=== PATIENT | female | born 1995 | race Two or more races ===

== ENCOUNTER 2020-10-17 17:55 | Emergency (ER) | payer OTHER ==
[~2020-10-17] VITALS: Ht 149.9 cm; Wt 71.6 kg
--- NOTE | 2020-10-17 18:23 | NUR ---
first contact with pt. pt is 18 weeks . lmp end of may. pt c/o vaginal bleeding x1 episode today. pt denies any abd pain/n/v/dzy/urinary symptoms. pt saw ob yesterday and everything was fine yesterday per pt. a0. pt's aox4. resps even and unlabored. bp/spo2 monitors in place. call light within reach. pa at bedside for evaluation at this time.
--- NOTE | 2020-10-17 18:37 | NUR ---
pt amb to br with steady gait. urine cup given.
--- NOTE | 2020-10-17 18:47 | NUR ---
pt provided small amount of urine. this rn walked to lab for ua.
[2020-10-17 18:51] LABS: MICROSCOPIC NOT IND
--- NOTE | 2020-10-17 18:55 | NUR ---
report given to jhoana garcia.
--- NOTE | 2020-10-17 18:56 | NUR ---
Report from Tiffanie MANE. Pt back from [place], awaiting results.
[2020-10-17 19:02] VITALS: BP 110/54
--- NOTE | 2020-10-17 19:09 | NUR ---
pt states she and usband had intercourse last night.
--- NOTE | 2020-10-17 19:34 | NUR ---
[facility] results are back, chart up for ERP.
== END 2020-10-17 20:01 | disposition home or self-care (01) ==
LOC: ED 19:30
DX: O20.0 Threatened abortion (principal); Z3A.18 18 weeks gestation of pregnancy
CPT/HCPCS: 36415; 76815; 81003; 86901; 99284

== ENCOUNTER 2021-03-15 07:55 | Inpatient (IN) | payer OTHER ==
[~2021-03-15] VITALS: Ht 149.9 cm; Wt 78.6 kg
[2021-03-15] MEDS ORDERED: LACTATED RINGERS 1,000 ML IVBOLUS ONE (10:30)
[2021-03-15] MEDS ORDERED: SODIUM CITRATE/CITRIC ACID 30 ML UDC PO ONE (10:30)
[2021-03-15] MEDS ORDERED: METOCLOPRAMIDE 5 MG/ML, 2ML IV ONE (10:30)
[2021-03-15] MEDS ORDERED: NEWBORN KIT ONE (10:32)
[2021-03-15] MEDS ORDERED: SODIUM CITRATE/CITRIC ACID 15 ML UDC ONE (10:32)
[2021-03-15] MEDS ORDERED: OXYTOCIN 30U/ 0.9% NaCL 500ML 500 ML ONE (10:32)
[2021-03-15 10:43] LABS: BASOPHILS % (AUTO) 0 % (0-1); EOSINOPHILS % (AUTO) 0 % (1-7); LYMPHOCYTES % (AUTO) 27 % (22-44); MEAN CORPUSCULAR HEMOGLOBIN 30.8 pg (27.0-34.8); MEAN CORPUSCULAR HGB CONC 33.7 g/dL (32.4-35.8); MEAN PLATELET VOLUME 8.2 fL (7.4-10.4); MONOCYTES % (AUTO) 6 % (2-9); NEUTROPHILS % (AUTO) 67 % (42-75); PLATELET COUNT 227 x10^3/uL (130-400); RED BLOOD COUNT 4.14 x10^6/uL (3.82-5.3); RED CELL DISTRIBUTION WIDTH 13.5 % (9.6-15.2)
[2021-03-15] MEDS ORDERED: CEFAZOLIN 1,000 MG ONE (11:12)
[2021-03-15] MEDS ORDERED: DEXAMETHASONE 4 MG/ML, 1ML ONE (11:12)
[2021-03-15] MEDS ORDERED: EPHEDRINE 50 MG/ML, 1ML ONE (11:12)
[2021-03-15] MEDS ORDERED: KETOROLAC 30 MG/1 ML ONE (11:12)
[2021-03-15] MEDS ORDERED: ONDANSETRON 2MG/ML, 2ML ONE (11:12)
[2021-03-15] MEDS ORDERED: FENTANYL PF 100 MCG/2ML ONE (11:12)
[2021-03-15] MEDS ORDERED: OXYTOCIN 10 UNITS/ML, 1ML ONE (11:12)
[2021-03-15] MEDS ORDERED: PHENYLEPHRINE 10 MG/ML ONE (11:12)
[2021-03-15] MEDS ORDERED: HYDROmorphone 2 MG/ML, 1ML ONE (11:21)
[2021-03-15 11:29] VITALS: BP 123/68
[2021-03-15] MEDS ORDERED: ALBUTEROL SULFATE 2.5 MG/3 ML NPPB PRN (11:30)
[2021-03-15] MEDS ORDERED: hydrALAzine 20 MG/ML, 1ML IV PRN (11:30)
[2021-03-15] MEDS ORDERED: morphine SULFATE 10 MG/ML, 1ML IV PRN (11:30)
[2021-03-15] MEDS ORDERED: PLEASE ENTER HEIGHT AND WEIGHT MC SCH (11:30)
[2021-03-15] MEDS ORDERED: LABETALOL 5MG/ML, 20ML IV PRN (11:30)
[2021-03-15] MEDS ORDERED: EPHEDRINE 50 MG/ML, 1ML IVPush PRN (11:30)
[2021-03-15] MEDS ORDERED: OXYcodone 5 MG/5 ML ORAL.SOL UDC PO PRN (11:30)
[2021-03-15] MEDS ORDERED: HYDROcodone/APAP 7.5-325MG/15ML UDC PO PRN (11:30)
[2021-03-15] MEDS ORDERED: MIDAZOLAM 1 MG/ML, 2ML IV PRN (11:30)
[2021-03-15] MEDS ORDERED: PROMETHAZINE 25 MG/ML, 1ML IV PRN (11:30)
[2021-03-15] MEDS ORDERED: METOPROLOL 1 MG/ML, 5ML IV PRN (11:30)
[2021-03-15] MEDS ORDERED: MEPERIDINE/PF 25MG/0.5ML IVPush PRN (11:30)
[2021-03-15] MEDS ORDERED: ONDANSETRON 2MG/ML, 2ML IVPush PRN (11:30)
[2021-03-15] MEDS ORDERED: HYDROmorphone 2 MG/ML, 1ML IVPush PRN (11:30)
[2021-03-15] MEDS ORDERED: FENTANYL PF 100 MCG/2ML IV PRN (11:30)
[2021-03-15] MEDS ORDERED: MORPHINE SULFATE 4 MG/ML, 1ML IVPush PRN (13:30)
[2021-03-15] MEDS ORDERED: MISOPROSTOL 200 MCG TABLET PR PRN (13:30)
[2021-03-15] MEDS ORDERED: SIMETHICONE 80 MG CHEW TAB PO PRN (13:30)
[2021-03-15] MEDS: KETOROLAC 30 MG/1 ML IV SCH ×2 (13:30→19:32)
[2021-03-15] MEDS: LACTATED RINGERS 1,000 ML IV SCH ×4 (13:30→21:39)
[2021-03-15] MEDS ORDERED: ACETAMINOPHEN 325 MG TABLET PO PRN (13:30)
[2021-03-15] MEDS: ONDANSETRON 2MG/ML, 2ML IV PRN ×2 (13:50→23:07)
[2021-03-15] MEDS: OXYTOCIN 30U/ 0.9% NaCL 500ML 500 ML IV SCH ×2 (14:30→22:28)
[2021-03-15] MEDS ORDERED: PREN1TAB60 PO (14:40)
[2021-03-15 15:15] VITALS: BP 118/79
[2021-03-15] MEDS: OXYcodone IR 5MG TABLET PO PRN ×2 (17:05→21:12)
[2021-03-15 19:30] VITALS: BP 109/72
[2021-03-15] MEDS: DOCUSATE 100 MG CAPSULE PO PRN (19:33)
[2021-03-15 21:16] LABS: BASOPHILS % (AUTO) 0 % (0-1); EOSINOPHILS % (AUTO) 0 % (1-7); LYMPHOCYTES % (AUTO) 11 % (22-44); MEAN CORPUSCULAR HEMOGLOBIN 30.8 pg (27.0-34.8); MEAN CORPUSCULAR HGB CONC 33.8 g/dL (32.4-35.8); MEAN PLATELET VOLUME 8.4 fL (7.4-10.4); MONOCYTES % (AUTO) 4 % (2-9); NEUTROPHILS % (AUTO) 85 % (42-75); PLATELET COUNT 240 x10^3/uL (130-400); RED BLOOD COUNT 3.88 x10^6/uL (3.82-5.3); RED CELL DISTRIBUTION WIDTH 13.7 % (9.6-15.2)
[2021-03-16 00:30] VITALS: BP 117/77
[2021-03-16] MEDS: KETOROLAC 30 MG/1 ML IV SCH ×4 (02:08→19:45)
[2021-03-16] MEDS: LACTATED RINGERS 1,000 ML IV SCH ×5 (04:23→21:39)
[2021-03-16 04:31] VITALS: BP 107/65
[2021-03-16] MEDS: OXYcodone IR 5MG TABLET PO PRN (04:54)
[2021-03-16 07:14] VITALS: BP 110/74
[2021-03-16] MEDS: DOCUSATE 100 MG CAPSULE PO PRN ×2 (07:51→19:46)
[2021-03-16] MEDS: PRENATAL VIT/IRON/FA 1 EACH TABLET PO SCH (07:51)
[2021-03-16] MEDS: OXYTOCIN 30U/ 0.9% NaCL 500ML 500 ML IV SCH ×2 (09:30→19:35)
[2021-03-16] MEDS: OXYcodone/APAP 5/325MG TABLET PO PRN (12:22)
[2021-03-16] MEDS ORDERED: OXYcodone 5 MG/5 ML ORAL.SOL UDC PO PRN (16:00)
[2021-03-16] MEDS ORDERED: EPHEDRINE 50 MG/ML, 1ML IVPush PRN (16:00)
[2021-03-16] MEDS ORDERED: ONDANSETRON 2MG/ML, 2ML IV PRN (16:00)
[2021-03-16] MEDS ORDERED: ALBUTEROL SULFATE 2.5 MG/3 ML NPPB PRN (16:00)
[2021-03-16] MEDS ORDERED: MEPERIDINE/PF 25MG/0.5ML IV PRN (16:00)
[2021-03-16] MEDS ORDERED: PROMETHAZINE 25 MG/ML, 1ML IV PRN (16:00)
[2021-03-16] MEDS ORDERED: HYDROcodone/APAP 7.5-325MG/15ML UDC PO PRN (16:00)
[2021-03-16] MEDS ORDERED: MIDAZOLAM 1 MG/ML, 5ML IV PRN (16:00)
[2021-03-16] MEDS ORDERED: hydrALAzine 20 MG/ML, 1ML IVPush PRN (16:00)
[2021-03-16] MEDS ORDERED: FENTANYL PF 100 MCG/2ML IVPush PRN (16:00)
[2021-03-16] MEDS ORDERED: HYDROmorphone 2 MG/ML, 1ML IV PRN (16:00)
[2021-03-16] MEDS ORDERED: LABETALOL 5MG/ML 40ML VIAL IV PRN (16:00)
[2021-03-16] MEDS ORDERED: METOPROLOL 1 MG/ML, 5ML IVPush PRN (16:00)
[2021-03-16 20:26] VITALS: BP 115/77
[2021-03-17] MEDS: KETOROLAC 30 MG/1 ML IV SCH ×2 (02:30→08:59)
[2021-03-17] MEDS: OXYcodone/APAP 5/325MG TABLET PO PRN ×2 (02:34→08:59)
[2021-03-17] MEDS: LACTATED RINGERS 1,000 ML IV SCH ×2 (04:01→04:02)
[2021-03-17] MEDS: OXYTOCIN 30U/ 0.9% NaCL 500ML 500 ML IV SCH (04:28)
[2021-03-17 08:00] VITALS: BP 108/67
[2021-03-17] MEDS: PRENATAL VIT/IRON/FA 1 EACH TABLET PO SCH (08:59)
[2021-03-17] MEDS: DOCUSATE 100 MG CAPSULE PO PRN (08:59)
[2021-03-17] MEDS: ONDANSETRON 2MG/ML, 2ML IV PRN (10:27)
[2021-03-17] MEDS ORDERED: IBUP-1222 PO ×2 (11:26→11:30)
[2021-03-17] MEDS ORDERED: DOCU-131 PO (11:31)
[2021-03-17] MEDS ORDERED: OXYC1TAB12 PO (11:32)
[2021-03-17] MEDS ORDERED: IBUPROFEN 600 MG TABLET PO PRN (13:30)
== END 2021-03-17 12:49 | disposition home or self-care (01) | DRG 788 ==
LOC: LDIP 10:17 → 2NW 15:06
PROVIDERS: ADMIT Obstetrics & Gynecology; ATTEND Obstetrics & Gynecology
PROC: 10D00Z1 Extraction of Products of Conception, Low, Open Approach (ICD-10-PCS; principal; 2021-03-15)
DX: O32.1XX0 Maternal care for breech presentation, not applicable or unspecified (principal); Z37.0 Single live birth; Z3A.39 39 weeks gestation of pregnancy; Z20.822 Contact with and (suspected) exposure to COVID-19
CPT/HCPCS: 36415; 85025; 86592; 86850; 86900; 87635; G0378; J0690; J1100; J1170; J1885; J2405; J3010; J2370; J2590; J2765; J7120